=== PATIENT | female | born 1955 | race African-American/Black ===

== ENCOUNTER 2018-10-15 22:03 | Observation (INO) | payer MEDICARE ==
[2018-10-15] MEDS ORDERED: Magnesium 2 GM/50 ML BAG (IN WATER) ONE (22:41)
[2018-10-15 23:28] LABS: ALT (SGPT) 23 U/L (8-55); AST (SGOT) 37 U/L (5-34); Albumin 3.4 g/dL (3.4-4.8); Alkaline Phosphatase 83 U/L (40-150); Anion Gap 11 mmol/L (10-20); BUN (Urea Nitrogen) 4 mg/dL (9.8-20.1); Bilirubin, Total 0.2 mg/dL (0.2-1.2); Calc. Creatinine Clearance 0 mL/min (70-130); Calcium 8.8 mg/dL (7.8-10.44); Carbon Dioxide 22 mmol/L (23-31); Chloride 113 mmol/L (98-107); Estimated GFR-MDRD 82; Glucose 102 mg/dL (80-115); Magnesium 1.8 mg/dL (1.6-2.6); Potassium 3.8 mmol/L (3.5-5.1); Protein, Total 6.4 g/dL (6.0-8.3); Sodium 142 mmol/L (136-145)
[2018-10-16 01:07] VITALS: BMI 30.9
[2018-10-16] MEDS ORDERED: [UNRECOGNIZED DRUG - REMARK] FS PRN (01:37)
[2018-10-16] MEDS: 1/2 NS w/KCL 20 mEq 1,000 ML IV SCH ×3 (02:08→13:53)
[2018-10-16 09:27] LABS: #Eosinphils 0.1 thou/uL (0.0-0.7); #Monocytes 0.4 thou/uL (0.11-0.59); #Neutrophils 1.9 thou/uL (1.40-6.50); %Basophils 0.2 % (0.0-1.0); %Eosinophils 1.3 % (0.0-10.0); %Lymphocytes 45.1 % (21.0-51.0); %Monocytes 9.8 % (0.0-10.0); %Neutrophils 43.6 % (42.0-75.0); Hemoglobin 11.9 g/dL (12.0-16.0); Mean Corpuscular HGB CONC 32.4 g/dL (32.0-36.0); Mean Corpuscular Hemoglobin 31.7 pg (27.0-31.0); Mean Corpuscular Volume 97.8 fL (78.0-98.0); Mean Platelet Volume 7.3 fL (7.4-10.4); Platelet Count 273 thou/uL (130-400); RBC Distribution Width 13.1 % (11.5-14.5); Red Blood Cell (RBC) Count 3.74 mill/uL (4.20-5.40); White Blood Cell (WBC) Count 4.4 thou/uL (4.8-10.8)
[2018-10-16] MEDS: Famotidine 20 MG TAB PO SCH ×2 (09:41→20:02)
[2018-10-16] MEDS: Lisinopril 5 MG TAB PO SCH (09:41)
[2018-10-16] MEDS: Enoxaparin Sodium 40 MG/0.4 ML SYRINGE SC SCH (09:41)
[2018-10-16 09:51] LABS: Anion Gap 8 mmol/L (10-20); BUN (Urea Nitrogen) 4 mg/dL (9.8-20.1); Calc. Creatinine Clearance 79 mL/min (70-130); Calcium 8.5 mg/dL (7.8-10.44); Carbon Dioxide 25 mmol/L (23-31); Chloride 113 mmol/L (98-107); Estimated GFR-MDRD Greater than 90; Glucose 93 mg/dL (80-115); Magnesium 1.9 mg/dL (1.6-2.6); Potassium 3.9 mmol/L (3.5-5.1); Sodium 142 mmol/L (136-145)
--- NOTE | 2018-10-16 10:38 | HP ---
PRIMARY CARE PHYSICIAN: Dr. Vernon Theodore. CHIEF COMPLAINT: Syncopal episode, hypotension, QT prolongation. HISTORY OF PRESENT ILLNESS: Ms. Ewing is a 63-year-old female with past medical history of hypertension, hyperlipidemia, gastroesophageal reflux disease, and cocaine use along with bipolar disorder and depression, presented to the Medicine ER late last night after a syncopal episode at home. For the day prior to arrival, the patient had stated that she had several bouts of diarrhea about 4-5 the day prior and the day of which was yesterday. She reports walking on the hallway to her bathroom and feeling dizzy and falling to the ground, she states that she had helped herself up and got to the bathroom when she had noticed another episode. She was brought in by EMS for further evaluation, she had received 500 mL fluid bolus as her systolic blood pressure was in the 80s. Upon arrival, CT of head was obtained and found to be negative with no acute findings, chest x-ray was also performed and showed no acute cardiopulmonary abnormality. Potassium level was found to be low at 3.0. Therefore, she was given potassium replacement. On her EKG, it had displayed prolonged QT. She had received another 2 L of IV fluid with normal saline and then transferred to [facility] for further evaluation and management of her symptoms. Upon arrival, she had no fever or chills. She had no complaints of headache, dizziness, or blurred vision. She had no chest pain, shortness of breath, or palpitations. She had some mild nausea, however, this has improved after a dose of Reglan. She was given 2 g of IV magnesium sulfate and started on 1 L of half-normal saline with D5 and potassium chloride. Looking at her home medications, she had been taking Risperdal, Celexa, doxepin, which all could be causing the QT prolongation. However, a drug screen was also obtained and found to be positive for cocaine, the patient also admitted to smoking cocaine for the last couple of days prior to symptoms starting. It was determined the patient be admitted under observation and be monitored on telemetry for further QT prolongation. REVIEW OF SYSTEMS: All other systems reviewed and found to be negative unless mentioned in the HPI. PAST MEDICAL HISTORY: Hypertension, hyperlipidemia, gastroesophageal reflux disease. PAST SURGICAL HISTORY: Appendectomy, hernia repair, tubal ligation, left ankle surgery, carpal tunnel surgery. PSYCHIATRIC HISTORY: Significant for bipolar and depression. SOCIAL HISTORY: The patient admits to alcohol use roughly once a week, however, denies any tobacco use. She also reports using crack cocaine. Drug screen positive for cocaine use. KNOWN ALLERGIES: Latex. CURRENT HOME MEDICATIONS: 1. Doxepin 75 mg oral once daily. 2. Risperdal 5 mg oral once daily. 3. Celexa 20 mg oral once daily. 4. Lisinopril 10 mg oral once daily. PHYSICAL EXAMINATION: VITAL SIGNS: Blood pressure 140/79, pulse 79, respirations 20, temp 98.2 degrees Fahrenheit, O2 saturation 97% on room air. GENERAL: The patient is awake, alert, and oriented x3. No acute distress noted. HEENT: Atraumatic, normocephalic. Pupils are round and reactive to light. Extraocular muscles intact. Moist mucous membranes noted with poor oral hygiene. NECK: Soft and supple. No JVD. CARDIOVASCULAR: Positive S1 and S2. Regular rate and rhythm. No murmur auscultated. RESPIRATORY: Clear to auscultation bilaterally. No wheezes, rales, or rhonchi. ABDOMEN: Soft, nontender. Bowel sounds present. Nondistended. MUSCULOSKELETAL: Strength 5+ bilaterally upper and lower extremities. Moves all extremities equally. No edema noted. NEUROLOGIC: Cranial nerves 2 through 12 grossly intact. No focal deficits noted. Speech intact and normal. Gait not assessed. PSYCHIATRIC: Good mood and affect. LABORATORY DATA: WBC 7.3, RBC 3.80, hemoglobin 12.5, platelets 270. Sodium 142, potassium 3.8, chloride 113, carbon dioxide 22, anion gap 11, BUN 4, creatinine 0.85, estimated GFR 82. Troponin less than 0.010. Urinalysis was unremarkable. Toxicology detected tricyclics and cocaine. Plasma alcohol less than 10. DIAGNOSTIC IMAGING: CT brain noncontrast showed no acute intracranial findings. Chest x-ray showed no acute cardiopulmonary abnormality. ASSESSMENT AND PLAN: 1. QT prolongation, this is likely secondary to cocaine use and/or doxepin and/or Celexa and/or Risperdal. Therefore, will be stopping her home medications that are QT prolongation causing. She will be kept on telemetry for further monitoring. An IV D5 half-normal saline with KCl will be continued. She had received 2 g of magnesium sulfate in the ER and currently she is asymptomatic with no syncopal like episodes. 2. Cocaine abuse. Further education was given for cocaine cessation and the patient verbalized her understanding. 3. Hypertension. The patient will be continued on her home medication of lisinopril and vital signs will be monitored closely. 4. Syncope, this is likely secondary to nausea and diarrhea, which had caused orthostatic hypotension possibly from cocaine use and/or QT prolongation. Therefore, the patient will be monitored, labs will be rechecked, CT head was negative. Vital signs improved and stable at this time. 5. Gastroesophageal reflux disease. Continue on Pepcid twice daily. 6. Deep venous thrombosis and gastrointestinal prophylaxis. 7. Code status, full code. DISPOSITION: Pending further workup and clinical findings. Job ID: [id number]
[2018-10-16] MEDS: Acetaminophen 325 MG TAB PO PRN ×2 (12:26→23:39)
[2018-10-16] MEDS: Ondansetron ODT 4 MG TAB PO PRN ×2 (12:27→20:14)
[2018-10-17] MEDS: Acetaminophen 325 MG TAB PO PRN ×3 (04:27→17:43)
[2018-10-17 06:28] LABS: Eosinophils 3 % (0-10); Hemoglobin 12.2 g/dL (12.0-16.0); Lymphocytes 61 % (21-51); MDiff Complete? YES; Mean Corpuscular HGB CONC 31.8 g/dL (32.0-36.0); Mean Corpuscular Hemoglobin 32.2 pg (27.0-31.0); Mean Platelet Volume 7.6 fL (7.4-10.4); Metamyelocyte 1 % (0-0); Monocytes 8 % (0-10); Neutrophil 27 % (42-75); Platelet Count 282 thou/uL (130-400); Platelet Morphology Comment Appears Adequate; RBC Distribution Width 13.5 % (11.5-14.5); Red Blood Cell (RBC) Count 3.79 mill/uL (4.20-5.40)
[2018-10-17 06:31] LABS: Anion Gap 8 mmol/L (10-20); BUN (Urea Nitrogen) 6 mg/dL (9.8-20.1); Calc. Creatinine Clearance 73 mL/min (70-130); Calcium 8.9 mg/dL (7.8-10.44); Carbon Dioxide 28 mmol/L (23-31); Chloride 109 mmol/L (98-107); Estimated GFR-MDRD 83; Glucose 109 mg/dL (80-115); Potassium 3.5 mmol/L (3.5-5.1); Sodium 141 mmol/L (136-145)
[2018-10-17] MEDS: Famotidine 20 MG TAB PO SCH ×2 (09:02→21:23)
[2018-10-17] MEDS: Enoxaparin Sodium 40 MG/0.4 ML SYRINGE SC SCH (09:02)
[2018-10-17] MEDS: Lisinopril 5 MG TAB PO SCH (09:02)
[2018-10-17] MEDS: Ondansetron ODT 4 MG TAB PO PRN ×2 (11:49→17:43)
[2018-10-17] MEDS: Metoclopramide HCl 10 MG/2 ML VIAL IVP SCH ×2 (15:33→21:18)
--- NOTE | 2018-10-17 17:25 | PDOC.PN ---
- Subjective Encounter Start Date: 10/17/18 Encounter Start Time: 17:23 Patient lying in bed, no events over night. Denies chest pain, palpitation, shortness of breath, abdominal pain, or other acute symptoms. She reports headache improved. Denies any headache, blurred vision or dizziness. Awaiting echo - Objective Resuscitation Status - Order Detail: 10/16/18 08:24 Resuscitation Status Routine Co-Sign Provider: Resuscitation Status: FULL: Full Resuscitation MAR Reviewed: Yes Vital Signs & Weight: Vital Signs (12 hours) Temp Pulse Resp BP BP Pulse Ox 10/17/18 15:53 154/83 H 10/17/18 15:15 97.9 F 59 L 20 177/75 H 93 L 10/17/18 11:22 98.4 F 75 16 150/75 H 95 10/17/18 08:00 98 F 55 L 16 157/69 H 100 Weight Admit Weight 142 lb 11.2 oz Weight 144 lb 1.6 oz I&O: 10/16/18 10/17/18 10/18/18 05:59 06:59 06:59 Intake Total Output Total 500 Balance -500 Result Diagrams: 10/17/18 05:31 10/17/18 05:31 Radiology Reviewed by me: Yes EKG Reviewed by me: Yes Phys Exam - Physical Examination Constitutional: NAD HEENT: PERRLA, moist MMs, oral pharynx no lesions Poor oral hygiene Neck: no nodes, no JVD Respiratory: no wheezing, clear to auscultation bilateral Cardiovascular: RRR, no significant murmur Gastrointestinal: soft, non-tender, positive bowel sounds Musculoskeletal: no edema, pulses present Neurological: non-focal, moves all 4 limbs Lymphatic: no nodes Psychiatric: normal affect, A&O x 3 Skin: no rash, cap refill <2 seconds Dx/Plan (1) QT prolongation Code(s): R94.31 - ABNORMAL ELECTROCARDIOGRAM [ECG] [EKG] Status: Acute (2) Cocaine abuse Code(s): F14.10 - COCAINE ABUSE, UNCOMPLICATED Status: Acute (3) HTN (hypertension) Code(s): I10 - ESSENTIAL (PRIMARY) HYPERTENSION Status: Acute (4) Syncope Code(s): R55 - SYNCOPE AND COLLAPSE Status: Acute - Plan cont current plan of care, DVT proph w/lovenox * No syncopal like episode since admission * QT improved with holding home medications * Continue lisinopril for BP control * Await echo * If echo returns normal, likely discharge home * Strongly recommended cessation of cocaine use
[2018-10-18] MEDS: Metoclopramide HCl 10 MG/2 ML VIAL IVP SCH ×2 (04:08→10:02)
[2018-10-18 05:51] LABS: Anion Gap 9 mmol/L (10-20); BUN (Urea Nitrogen) 6 mg/dL (9.8-20.1); Calc. Creatinine Clearance 77 mL/min (70-130); Calcium 8.9 mg/dL (7.8-10.44); Carbon Dioxide 29 mmol/L (23-31); Chloride 106 mmol/L (98-107); Estimated GFR-MDRD 90; Glucose 106 mg/dL (80-115); Potassium 3.9 mmol/L (3.5-5.1); Sodium 140 mmol/L (136-145)
[2018-10-18 06:02] LABS: Band 2 % (5-11); Hemoglobin 13.4 g/dL (12.0-16.0); Lymphocytes 62 % (21-51); MDiff Complete? YES; Macrocytosis SLIGHT = 6-15 cells (100X) (0-5/hpf); Mean Corpuscular HGB CONC 31.9 g/dL (32.0-36.0); Mean Corpuscular Hemoglobin 32.2 pg (27.0-31.0); Mean Platelet Volume 7.7 fL (7.4-10.4); Monocytes 2 % (0-10); Neutrophil 34 % (42-75); Platelet Count 284 thou/uL (130-400); Platelet Morphology Comment Appears Adequate; RBC Distribution Width 13.4 % (11.5-14.5); Red Blood Cell (RBC) Count 4.16 mill/uL (4.20-5.40); White Blood Cell (WBC) Count 4.8 thou/uL (4.8-10.8)
[2018-10-18] MEDS: Lisinopril 5 MG TAB PO SCH (08:27)
[2018-10-18] MEDS: Enoxaparin Sodium 40 MG/0.4 ML SYRINGE SC SCH (08:27)
[2018-10-18 11:53] VITALS: BP 136/62; TEMP 97.8
--- NOTE | 2018-10-18 20:40 | EKG ---
Test Reason : Blood Pressure : / mmHG Vent. Rate : 079 BPM Atrial Rate : 079 BPM P-R Int : 132 ms QRS Dur : 082 ms QT Int : 426 ms P-R-T Axes : 073 030 026 degrees QTc Int : 488 ms Normal sinus rhythm ST elevation high lateral leads. Cannot r/o early acute changes, but most c/w normal variant since un changed from multiple prior EKG's When compared with ECG of 15-OCT-2018 22:13, (Unconfirmed) Nonspecific T wave abnormality has replaced inverted T waves in Inferior leads Confirmed by DR. Tanya SAINI ([id number]) on 10/18/2018 8:39:58 PM Referred By: ARLENE NORRIS--PAC Confirmed By:DR. Tanya SAINI
--- NOTE | 2018-10-19 04:08 | DIS ---
DATE OF ADMISSION: 10/16/2018 DATE OF DISCHARGE: 10/18/2018 ALLERGIES: LATEX. CHIEF COMPLAINT: Syncopal episode, hypotension, and QT prolongation. FINAL DIAGNOSES: 1. Syncopal episode, resolved, secondary to possible torsades from prolonged QT. 2. Prolonged QT in the setting of multiple psychiatric medications. 3. Bipolar disorder. 4. Cocaine abuse. 5. Hypertension. PROCEDURES PERFORMED: None. LABORATORY RESULTS: While blood cell count 4.8, hemoglobin 13.4, hematocrit 42. Sodium 140, potassium 3.9, chloride 106, carbon dioxide 29, BUN 6, and creatinine 0.79. AST 37, ALT 23, and alkaline phosphatase 83. TSH 0.5276. IMAGING RESULTS: Echocardiogram, left ventricular systolic function normal, estimated 50% to 55%ejection fraction, [id number] MR. CONSULTATION: None. HOSPITAL COURSE: The patient is a 63-year-old female with past medical history significant for hypertension, hyperlipidemia, gastroesophageal reflux disease, bipolar disorder, depression, and recent cocaine use, who presented to the ER with complaints of a syncopal episode at home. The patient reports that she has had a 4 to 5-day history of diarrhea prior to the event. She states she felt dizzy and fell to the ground. She called EMS and brought her to the hospital for further evaluation. She did receive a 500 mL fluid bolus. Systolic blood pressure was initially in the 80s. CT of the head was obtained and found to be negative with no acute findings, chest x-ray was also performed and showed no acute cardiopulmonary abnormality. Potassium level was 3 and she was given potassium replacement. Initial EKG at the [place] [facility] did show prolonged QT. She received another 2 L of IV fluid with normal saline and was transferred to our hospital for further level of care. EKG on arrival to our facility showed sinus rhythm with nonspecific T-wave abnormality and prolonged QTc of 640 milliseconds. She was given 2 g of IV magnesium sulfate and started on half-normal saline with D5 and potassium chloride. Her home medications including Risperdal, Celexa, and doxepin were all held secondary to QT prolongation. The patient's symptoms have completely resolved. EKG this morning shows normal sinus rhythm, no acute ST or T-wave changes and QTc of 488 milliseconds. She has had no arrhythmia per telemetry monitoring. She has had no further nausea, vomiting, diarrhea, or syncope. PHYSICAL EXAMINATION: VITAL SIGNS: Blood pressure 136/62, O2 saturation 98% on room air. Afebrile. Pulse is 70. GENERAL: Awake, alert, in no acute distress. HEENT: Atraumatic and normocephalic. Eye movements intact. NECK: Supple, no lymphadenopathy, no carotid bruit. RESPIRATORY: Regular respiratory rate and pattern, clear to auscultation bilaterally. CV: Normal S1 and S2. No appreciable murmurs, rubs, or gallops. GI: Soft, nontender, positive bowel sounds. PERIPHERAL VASCULAR: No edema. MUSCULOSKELETAL: No joint effusion or swelling. NEUROLOGIC: Nonfocal. SKIN: Normal and dry. No skin discoloration. DISCHARGE MEDICATIONS: She will continue Celexa 40 mg daily. Continue home dose hydrocodone/acetaminophen 1 p.o. q.6 hours. Continue hydroxyzine 25 mg p.o. b.i.d., lisinopril 5 mg daily. Please note that her Risperdal and doxepin have been discontinued in the setting of prolonged QT. DISCHARGE DISPOSITION: Home. PLAN: We will continue Celexa and hold her other psychiatric medications at this time. She does have a followup appointment scheduled with [facility]. She has been counseled extensively on the cessation from cocaine and drug abuse. She will also follow up with her PCP. Job ID: [id number] [facility]
== END 2018-10-18 14:02 | disposition home or self-care (01) ==
LOC: ERS 22:03 → 2SW 10-16 00:57
PROVIDERS: ADMIT Family Medicine; ATTEND Family Medicine
DX: I45.81 Long QT syndrome (principal); T43.595A Adverse effect of other antipsychotics and neuroleptics, initial encounter; T43.225A Adverse effect of selective serotonin reuptake inhibitors, initial encounter; T43.015A Adverse effect of tricyclic antidepressants, initial encounter; R55 Syncope and collapse; F31.9 Bipolar disorder, unspecified; F14.10 Cocaine abuse, uncomplicated; I10 Essential (primary) hypertension; E78.5 Hyperlipidemia, unspecified; K21.9 Gastro-esophageal reflux disease without esophagitis; Z79.899 Other long term (current) drug therapy; Z91.040 Latex allergy status
CPT/HCPCS: 80048 ×3; 80053; 83735 ×2; 84443; 85025 ×3; 93005 ×2; 93306; 96361 ×2; 96365; 96372 ×3; 96375; 96376 ×2; 99285; G0378 ×3; 36415; 93010; J1650; J2765; J3475; J3480; Q0162

== ENCOUNTER 2020-05-31 09:31 | Outpatient (CLI) | payer MEDICARE ==
--- NOTE | 2020-05-31 11:32 | MRI ---
MRI of thethoracic spine with IV contrast: 05/31/2020 COMPARISON:04/25/2020 HISTORY:Evaluate for enhancement of abnormality within the thoracic cord on prior imaging TECHNIQUE: Multiplanar multisequence MR imaging of thethoracic spine with IV contrast Findings:No abnormal enhancement is identified within the thoracic spine. Thoracic vertebral body hei ght and alignment appears within normal limits. No abnormal enhancement is seen involving the thoracic cord. Evaluation for central canal and/or neural foraminal stenosis is limited on contrast o nly MRI. Please refer to the 04/25/2020 thoracic spine MRI for assessment of degenerative change. IMPRESSION:No abnormal enhancement is noted within the thoracic spine, specifically the thoracic cord .
[2020-05-31] MEDS ORDERED: Magnevist 469MG/ML 20 ML VIAL ONE (15:17)
== END 2020-05-31 09:32 | disposition home or self-care (01) ==
LOC: BICMRI 09:31
PROVIDERS: ATTEND Surgery
DX: M47.14 Other spondylosis with myelopathy, thoracic region (principal)
CPT/HCPCS: 72147; 82565; A9579

== ENCOUNTER 2022-11-20 12:46 | Observation (INO) | payer MEDICARE ==
[2022-11-20 13:14] VITALS: BMI 30.9
[2022-11-20] MEDS ORDERED: Acetaminophen 325 MG TAB PO PRN (13:32)
[2022-11-20] MEDS ORDERED: Senokot S 8.6-50 MG TAB PO PRN (13:32)
[2022-11-20] MEDS ORDERED: Bisacodyl 10 MG SUPP PR PRN (13:32)
[2022-11-20] MEDS ORDERED: Lactated Ringer's 1,000 ML IV SCH (13:45)
[2022-11-20] MEDS ORDERED: Promethazine HCl 12.5 MG in Sodium Chloride 0.9% 50 ML IVPB PRN (14:05)
[2022-11-20] MEDS: metroNIDAZOLE 500 MG in Premix Bag 1 BAG IVPB SCH ×2 (14:10→22:41)
[2022-11-20] MEDS: Morphine 2 MG/ML VIAL SLOW IVP PRN ×2 (14:11→18:09)
[2022-11-20] MEDS ORDERED: hydrALAZINE 20 MG/ML VIAL SLOW IVP PRN (14:21)
[2022-11-20] MEDS: Ondansetron PF 4 MG/2 ML Vial IVP PRN (14:24)
[2022-11-20] MEDS ORDERED: cefTRIAXone\\ROCEPHIN 2 GM in Sodium Chloride 0.9% 100 ML IVPB SCH (15:00)
[2022-11-20] MEDS: Potassium Chloride 10 MEQ in Premix Bag 1 BAG IVPB SCH ×2 (16:16→18:09)
[2022-11-20] MEDS ORDERED: Ketorolac Tromethamine 30 MG/ML VIAL IVP PRN (19:21)
[2022-11-20] MEDS ORDERED: Ketorolac Tromethamine 30 MG/ML VIAL IVP SCH (19:30)
[2022-11-20] MEDS: Lactated Ringer's 1,000 ML IV SCH (20:44)
[2022-11-20] MEDS: Metoprolol Tartrate 25 MG TAB PO SCH (21:23)
[2022-11-20] MEDS: Zolpidem Tartrate 5 MG TAB PO PRN (22:41)
[2022-11-21] MEDS: Lactated Ringer's 1,000 ML IV SCH ×2 (04:42→11:30)
[2022-11-21] MEDS: Metoprolol Tartrate 25 MG TAB PO SCH ×2 (06:29→21:47)
[2022-11-21] MEDS: metroNIDAZOLE 500 MG in Premix Bag 1 BAG IVPB SCH (06:29)
[2022-11-21 07:15] LABS: Mean Corpuscular HGB CONC 33.7 g/dL (32.0-36.0); Mean Corpuscular Hemoglobin 33.6 pg (27.0-31.0); Mean Corpuscular Volume 99.7 fl (78.0-98.0); Mean Platelet Volume 8.9 fL (7.4-10.4); Platelet Count 151 10x3/uL (130-400); Red Blood Cell (RBC) Count 3.56 mill/uL (4.20-5.40); White Blood Cell (WBC) Count 2.9 10x3/uL (4.8-10.8)
[2022-11-21 07:24] LABS: ALT (SGPT) 214 U/L (8-55); AST (SGOT) 200 U/L (5-34); Albumin 3.2 g/dL (3.4-4.8); Alkaline Phosphatase 113 U/L (40-110); Anion Gap 12 mmol/L (10-20); BUN (Urea Nitrogen) 6 mg/dL (9.8-20.1); Bilirubin, Total 0.3 mg/dL (0.2-1.2); Calc. Creatinine Clearance 88 mL/min (70-130); Calcium 8.8 mg/dL (7.8-10.44); Carbon Dioxide 22 mmol/L (23-31); Chloride 110 mmol/L (98-107); Estimated GFR 98; Globulin 2.6 g/dL (2.4-3.5); Glucose 80 mg/dL (80-115); Potassium 3.6 mmol/L (3.5-5.1); Protein, Total 5.8 g/dL (5.8-8.1); Sodium 140 mmol/L (136-145)
[2022-11-21] MEDS ORDERED: Ipratropium/Albuterol 3 ML NEB ONE (08:12)
[2022-11-21 08:33] LABS: Eosinophils 4 % (0-10); Lymphocytes 57 % (21-51); MDiff Complete? YES; Monocytes 6 % (0-10); Neutrophil 33 % (42-75); Platelet Morphology Comment Appears Adequate; RBC Morphology Normal
[2022-11-21] MEDS ORDERED: Bupivacaine HCl 0.5%/Epinephrine 1:200,000/PF 30 ml Vial ONE (08:58)
[2022-11-21] MEDS ORDERED: Pantoprazole 40 MG VIAL IVP SCH (09:00)
[2022-11-21] MEDS ORDERED: Non-Formulary Item 1 EACH (Citalopram Hydrobromide [Celexa] 40 MG Tablet) PO SCH (09:00)
[2022-11-21] MEDS ORDERED: HYDROmorphone 0.5 MG/0.5 ML SYRINGE ONE (09:04)
[2022-11-21] MEDS ORDERED: Midazolam HCl 2 mg/2 ml Vial ONE (09:04)
[2022-11-21] MEDS ORDERED: fentaNYL PF 100 MCG/2 ML SYRINGE ONE (09:04)
[2022-11-21] MEDS ORDERED: Rocuronium Bromide 10 MG/ML (10ML VIAL) ONE (09:29)
[2022-11-21] MEDS ORDERED: NEOSTIGMINE 3 MG/3 ML SYR 3 MG/3 ML SYRINGE ONE (09:29)
[2022-11-21] MEDS ORDERED: PROPOFOL 200 MG/20 ML VIAL ONE (09:29)
[2022-11-21] MEDS ORDERED: GLYCOPYRROLATE/PF 0.2 MG/ML VIAL ONE (09:29)
[2022-11-21] MEDS ORDERED: Dexamethasone 20 MG/5 ML VIAL ONE (09:29)
[2022-11-21] MEDS ORDERED: Lidocaine 1% PF 5 ML VIAL ONE (09:29)
[2022-11-21] MEDS ORDERED: Ondansetron PF 4 MG/2 ML Vial ONE (09:29)
[2022-11-21] MEDS ORDERED: Metoprolol Tartrate 5 MG/5 ML VIAL ONE (09:29)
[2022-11-21] MEDS ORDERED: Acetaminophen 500 MG TAB PO PRN (09:31)
[2022-11-21] MEDS ORDERED: Ibuprofen 600 MG TAB PO PRN (09:31)
[2022-11-21] MEDS ORDERED: Iopamidol 15 ML ONE (09:34)
[2022-11-21] MEDS ORDERED: Meloxicam 15 MG TAB PO PRN ×2 (09:35→09:38)
[2022-11-21] MEDS ORDERED: Acetaminophen 500 MG TAB PO SCH (09:45)
[2022-11-21] MEDS ORDERED: hydrALAZINE 20 MG/ML VIAL ONE (10:36)
[2022-11-21] MEDS ORDERED: Promethazine HCl 25 MG/ML VIAL ONE (10:36)
[2022-11-21] MEDS ORDERED: Non-Formulary Medication 1 EACH PO PRN (10:53)
[2022-11-21] MEDS ORDERED: HYDROmorphone 2 MG/ML VIAL SLOW IVP PRN (11:00)
[2022-11-21] MEDS ORDERED: fentaNYL 50 mcg/mL 1 mL Vial ONE ×2 (11:00→11:06)
[2022-11-21] MEDS ORDERED: Ondansetron HCl/PF 4 MG/2 ML Vial IVP PRN (11:00)
[2022-11-21] MEDS ORDERED: Promethazine HCl 25 MG/ML VIAL IM/IV PRN (11:00)
[2022-11-21] MEDS ORDERED: Ipratropium/Albuterol 3 ML NEB NEB SCH (12:15)
[2022-11-21] MEDS: Lisinopril 10 MG TAB PO SCH (12:35)
[2022-11-21] MEDS: Morphine 2 MG/ML VIAL SLOW IVP PRN ×2 (12:36→15:55)
[2022-11-21] MEDS: Ondansetron PF 4 MG/2 ML Vial IVP PRN (15:25)
[2022-11-21] MEDS: traMADol HCl 50 MG TAB PO PRN (15:25)
[2022-11-21] MEDS ORDERED: Morphine 2 MG/ML VIAL SLOW IVP PRN (16:21)
[2022-11-21] MEDS: HYDROcodone/Acetaminophen 7.5/325 mg Tablet PO PRN (21:47)
[2022-11-21] MEDS: Zolpidem Tartrate 5 MG TAB PO PRN (21:49)
[2022-11-22] MEDS: traMADol HCl 50 MG TAB PO PRN (03:15)
[2022-11-22 08:16] LABS: #Basophils 0.1 thou/uL (0.0-0.2); #Lymphocytes 1.9 thou/uL (1.20-3.40); #Monocytes 0.4 thou/uL (0.11-0.59); #Neutrophils 2.9 thou/uL (1.40-6.50); %Basophils 1.3 % (0.0-1.0); %Eosinophils 0.3 % (0.0-10.0); %Lymphocytes 35.5 % (21.0-51.0); %Monocytes 7.6 % (0.0-10.0); %Neutrophils 55.2 % (42.0-75.0); Mean Corpuscular HGB CONC 35.2 g/dL (32.0-36.0); Mean Corpuscular Hemoglobin 35.1 pg (27.0-31.0); Mean Corpuscular Volume 99.8 fl (78.0-98.0); Mean Platelet Volume 8.7 fL (7.4-10.4); Platelet Count 169 10x3/uL (130-400); RBC Distribution Width 12.1 % (11.5-14.5); White Blood Cell (WBC) Count 5.2 10x3/uL (4.8-10.8)
[2022-11-22 08:32] LABS: ALT (SGPT) 173 U/L (8-55); AST (SGOT) 103 U/L (5-34); Albumin 3.5 g/dL (3.4-4.8); Alkaline Phosphatase 103 U/L (40-110); Anion Gap 12 mmol/L (10-20); BUN (Urea Nitrogen) 7 mg/dL (9.8-20.1); Bilirubin, Total 0.3 mg/dL (0.2-1.2); Calc. Creatinine Clearance 80 mL/min (70-130); Calcium 9.5 mg/dL (7.8-10.44); Carbon Dioxide 25 mmol/L (23-31); Chloride 105 mmol/L (98-107); Estimated GFR 93; Globulin 2.9 g/dL (2.4-3.5); Glucose 100 mg/dL (80-115); Potassium 3.3 mmol/L (3.5-5.1); Protein, Total 6.4 g/dL (5.8-8.1); Sodium 139 mmol/L (136-145)
[2022-11-22] MEDS ORDERED: Furosemide 20 MG TAB PO SCH (09:00)
[2022-11-22] MEDS: HYDROcodone/Acetaminophen 7.5/325 mg Tablet PO PRN (09:03)
[2022-11-22] MEDS: Lisinopril 10 MG TAB PO SCH (09:05)
[2022-11-22] MEDS: Metoprolol Tartrate 25 MG TAB PO SCH ×2 (09:06→22:59)
[2022-11-22] MEDS: Furosemide 20 MG TAB PO SCH (09:06)
[2022-11-22] MEDS ORDERED: Potassium Chloride 20 MEQ TAB PO SCH (11:30)
[2022-11-22] MEDS ORDERED: Lisinopril 10 MG TAB PO SCH (11:36)
[2022-11-22] MEDS: traMADol HCl 50 MG TAB PO SCH ×3 (11:50→22:59)
[2022-11-22] MEDS: Ondansetron PF 4 MG/2 ML Vial IVP PRN (18:17)
[2022-11-22] MEDS: Zolpidem Tartrate 5 MG TAB PO PRN (23:02)
[2022-11-23] MEDS: traMADol HCl 50 MG TAB PO SCH ×2 (07:28→12:48)
[2022-11-23] MEDS ORDERED: Lisinopril 20 MG TAB PO SCH (09:00)
[2022-11-23] MEDS: Furosemide 20 MG TAB PO SCH (09:44)
[2022-11-23 14:55] VITALS: BP 168/89; TEMP 97.6
== END 2022-11-23 15:19 | disposition home or self-care (01) ==
LOC: T4-B 12:46 → INTOOBSV 12:46
PROVIDERS: ADMIT Internal Medicine; ATTEND Internal Medicine
PROC: 0FT44ZZ Resection of Gallbladder, Percutaneous Endoscopic Approach (ICD-10-PCS; principal; 2022-11-21)
PROC: BF101ZZ Fluoroscopy of Bile Ducts using Low Osmolar Contrast (ICD-10-PCS; 2022-11-21)
DX: K80.12 Calculus of gallbladder with acute and chronic cholecystitis without obstruction (principal); K85.10 Biliary acute pancreatitis without necrosis or infection; I10 Essential (primary) hypertension; E78.5 Hyperlipidemia, unspecified; F14.10 Cocaine abuse, uncomplicated; K21.9 Gastro-esophageal reflux disease without esophagitis; Z79.899 Other long term (current) drug therapy; Z91.040 Latex allergy status
CPT/HCPCS: 47532; 47563; 76705; 80053 ×2; 83690; 85025 ×2; C1889; J0360; J1611; J3010; J3490; 36415; 88304; 96372; 96374; 96375; 96376; G0378; G0379; J0696; J1100; J1170; J1650; J1885; J2250; J2272; J2405; J2550; J2704; J3480; J7120; J7620; Q9967

== ENCOUNTER 2022-12-19 18:23 | Observation (INO) | payer MEDICARE ==
[2022-12-19] MEDS ORDERED: Ondansetron PF 4 MG/2 ML Vial IVP PRN (21:08)
[2022-12-19] MEDS ORDERED: Acetaminophen 325 MG TAB PO PRN (21:08)
[2022-12-19] MEDS ORDERED: Lorazepam 1 MG TAB PO PRN (21:10)
[2022-12-19] MEDS ORDERED: Ondansetron ODT 4 MG TAB PO PRN (21:10)
[2022-12-19] MEDS ORDERED: Lorazepam 2 MG/ML VIAL IM PRN (21:10)
[2022-12-19] MEDS ORDERED: hydrALAZINE 20 MG/ML VIAL SLOW IVP SCH (21:15)
[2022-12-19] MEDS ORDERED: Electrolyte Replacement Protocol 1 EACH FS SCH (21:15)
[2022-12-19] MEDS ORDERED: Thiamine HCl 200 MG/2 ML VIAL SLOW IVP SCH (21:15)
[2022-12-19] MEDS: Lorazepam 1 MG TAB PO SCH (22:02)
[2022-12-19 22:24] VITALS: BMI 21.2
[2022-12-19 22:30] LABS: Troponin I Less than 0.010 ng/mL (< 0.028)
[2022-12-20 01:36] LABS: Troponin I Less than 0.010 ng/mL (< 0.028)
[2022-12-20 02:48] LABS: Amphetamine Not Detected (NotDetected); Barbiturates Screen Not Detected (NotDetected); Benzodiazepine Screen Not Detected (NotDetected); Cocaine Metabolite Screen Detected (NotDetected); Methadone Not Detected (NotDetected); Methamphetamine Not Detected (NotDetected); Opiate Screen Not Detected (NotDetected); Oxycodone Screen Not Detected (NotDetected); Phencyclidine (PCP) Not Detected (NotDetected); THC/Cannabinoid Screen Not Detected (NotDetected); Tricyclic Screen Not Detected (NotDetected)
[2022-12-20] MEDS ORDERED: Morphine 2 MG/ML VIAL SLOW IVP SCH (03:15)
[2022-12-20] MEDS: Lorazepam 1 MG TAB PO SCH ×3 (03:52→15:01)
[2022-12-20 07:51] LABS: #Eosinphils 0.1 thou/uL (0.0-0.7); #Monocytes 0.4 thou/uL (0.11-0.59); #Neutrophils 1.1 thou/uL (1.40-6.50); %Basophils 0.5 % (0.0-1.0); %Eosinophils 2.4 % (0.0-10.0); %Lymphocytes 59.3 % (21.0-51.0); %Monocytes 10.5 % (0.0-10.0); %Neutrophils 27.3 % (42.0-75.0); Hemoglobin 12.3 g/dL (12.0-16.0); Mean Corpuscular HGB CONC 32.7 g/dL (32.0-36.0); Mean Corpuscular Hemoglobin 31.2 pg (27.0-31.0); Mean Corpuscular Volume 95.4 fl (78.0-98.0); Mean Platelet Volume 10.2 fL (7.4-10.4); Platelet Count 222 10x3/uL (130-400); Red Blood Cell (RBC) Count 3.94 mill/uL (4.20-5.40); White Blood Cell (WBC) Count 4.1 10x3/uL (4.8-10.8)
[2022-12-20] MEDS ORDERED: Multivit, Therapeutic 1 TAB PO SCH (09:00)
[2022-12-20] MEDS ORDERED: Lisinopril 10 MG TAB PO SCH (09:00)
[2022-12-20] MEDS ORDERED: Folic Acid 1 MG TAB PO SCH (09:00)
[2022-12-20] MEDS ORDERED: Lisinopril 20 MG TAB PO SCH (09:00)
[2022-12-20 10:39] LABS: Anion Gap 12 mmol/L (10-20); BUN (Urea Nitrogen) 8 mg/dL (9.8-20.1); Calc. Creatinine Clearance 59 mL/min (70-130); Calcium 9.3 mg/dL (7.8-10.44); Carbon Dioxide 26 mmol/L (23-31); Cardiac Risk 2.5 (Less than 4.5); Chloride 105 mmol/L (98-107); Cholesterol 168 mg/dl (< 200 Desired); Estimated GFR 97; Glucose 74 mg/dL (80-115); HDL Cholesterol 68 mg/dL (>60 Neg Risk); LDL Cholesterol, Calculated 87 mg/dL; Potassium 3.2 mmol/L (3.5-5.1); Sodium 140 mmol/L (136-145); Triglycerides 64 mg/dL (Less than 150)
[2022-12-20] MEDS ORDERED: Potassium Chloride 20 MEQ TAB PO SCH (11:00)
[2022-12-20] MEDS ORDERED: Ketorolac Tromethamine 30 MG/ML VIAL IVP PRN (11:56)
[2022-12-20 12:20] VITALS: BP 174/86; TEMP 98.7
[2022-12-20] MEDS ORDERED: Lorazepam 1 MG TAB PO PRN (21:10)
[2022-12-21] MEDS ORDERED: Lorazepam 1 MG TAB PO PRN (21:10)
[2022-12-21] MEDS ORDERED: Lorazepam 0.5 MG TAB PO SCH (21:15)
[2022-12-22] MEDS ORDERED: Thiamine 100 MG TAB PO SCH (21:00)
[2022-12-22] MEDS ORDERED: Lorazepam 0.5 MG TAB PO PRN (21:10)
== END 2022-12-20 16:39 | disposition home or self-care (01) ==
LOC: 2SW 18:23
PROVIDERS: ADMIT Family Medicine; ATTEND Family Medicine
DX: R07.89 Other chest pain (principal); I11.9 Hypertensive heart disease without heart failure; F32.2 Major depressive disorder, single episode, severe without psychotic features; F14.10 Cocaine abuse, uncomplicated; E78.5 Hyperlipidemia, unspecified; K21.9 Gastro-esophageal reflux disease without esophagitis; R45.851 Suicidal ideations; F10.10 Alcohol abuse, uncomplicated; Z79.899 Other long term (current) drug therapy; Z91.040 Latex allergy status
CPT/HCPCS: 80048; 80061; 80306; 84484 ×2; 85025; 85379; 93306; J0360; 36415; 36416; 96374; 96375; G0378; J2272; J3411